=== PATIENT | male | born 1955 | race Caucasian/White ===

== ENCOUNTER → 2018-01-24 09:20 | Outpatient (CLI) | payer OTHER, SELFPAY ==
--- NOTE | 2018-01-24 09:22 | DI.RAD.S_ITS ---
PROCEDURE: XR SHOULDER LT MIN 2V INDICATIONS: Left shoulder sprain decreased range of motion TECHNIQUE: 3 views of the shoulder were acquired. COMPARISON: None. FINDINGS: Bones: No fractures or dislocations. No suspicious bony lesions. Visualized ribs appear intact. There are mild degenerative changes identified involving the acromioclavicular joint. Soft tissues: No suspicious soft tissue calcifications. IMPRESSION: 1. No acute fracture of the left shoulder. 2. Mild degenerative changes of the acromioclavicular joint. Dictated by: Trenton Langley M.D. on 01/24/2018 at 8:35 Approved by: Trenton Langley M.D. on 01/24/2018 at 8:36
== END ==
PROVIDERS: PCP Family Medicine; Visit Provider Physician Assistant
DX: S43.492A Other sprain of left shoulder joint, initial encounter (principal); M25.512 Pain in left shoulder; M19.012 Primary osteoarthritis, left shoulder
CPT/HCPCS: 73030

== ENCOUNTER → 2018-04-26 14:13 | Outpatient (REF) | payer OTHER, SELFPAY | LOC: LAB 14:13 | PROVIDERS: PCP Family Medicine; Visit Provider Family Medicine | DX: Z11.59 Encounter for screening for other viral diseases (principal) | CPT/HCPCS: 87400 ==

== ENCOUNTER 2018-11-09 16:01 | Emergency (ER) | payer OTHER, SELFPAY ==
[2018-11-09 16:09] VITALS: BP 147/87; PULSE 86; RESP 18; TEMP 36.7; O2SAT 97; BMI 27.1
--- NOTE | 2018-11-09 16:14 | DI.RAD.S_ITS ---
PROCEDURE: XR SHOULDER RT MIN 2V INDICATIONS: SHOULDER INJURY FROM FALL TECHNIQUE: 3 views of the shoulder were acquired. COMPARISON: [facility], CR, XR SHOULDER LT MIN 2V, 01/24/2018, 9:23. FINDINGS: Bones: No fractures or dislocations. There is nedj-yh-purukgtd acromioclavicular joint degeneration. No suspicious bony lesions. Visualized ribs appear intact. Soft tissues: No suspicious soft tissue calcifications. IMPRESSION: 1. No fracture or subluxation. Dictated by: Jose Cordova M.D. on 11/09/2018 at 16:15 Approved by: Jose Cordova M.D. on 11/09/2018 at 16:16
[2018-11-09 17:40] VITALS: PULSE 78
--- NOTE | 2018-11-09 18:07 | ED.UPPEXIN ---
HPI - Extremity Injury (Upper) <HOSSEIN Merino - Last Filed: 11/10/18 02:03> General Chief Complaint: Extremity Injury, Upper Stated Complaint: right shoulder/arm radiating pain today L&I Time Seen by Provider: 11/09/18 18:00 Source: patient Mode of arrival: Ambulatory Limitations: no limitations History of Present Illness HPI narrative: This is a 63-year-old gentleman, smoker, who presents to ED with right focalized anterior shoulder pain radiating down to his wrist. Patient reports he tripped and fall on outstretched right hand. Patient denies elbow pain, hand pain, but reports mild mild wrist discomfort. Right dominant hand. Patient denies previous injury to right shoulder or upper extremities. Patient reports intact sensation and reports able to move his fingers. Related Data Home Medications Medication Instructions Recorded Confirmed lisinopril 2.5 mg tablet 2.5 mg PO DAILY 01/24/18 01/24/18 tamsulosin 0.4 mg capsule 0.4 mg PO DAILY 01/24/18 01/24/18 Allergies Allergy/AdvReac Type Severity Reaction Status Date / Time No Known Drug Allergies Allergy Verified 11/09/18 16:09 Review of Systems <HOSSEIN Merino - Last Filed: 11/10/18 02:03> Review of Systems ROS Unobtainable: All systems reviewed & are unremarkable except as noted in HPI and below PFSH <HOSSEIN Merino - Last Filed: 11/10/18 02:03> Surgical History History of arthroscopic knee surgery (Acute) Social History Smoking Status: Current every day smoker alcohol intake: current Social History Smoking Status: Current every day smoker alcohol intake: current Exam <HOSSEIN Merino - Last Filed: 11/10/18 02:03> Narrative Exam Narrative: General appearance: well developed, well nourished, in no acute distress. Head: normocephalic, atraumatic, no scalp lesions, non-tender. Eye: pupil equal, round. EOMI. Nose: nares patent. Oral: mucosa moist. Neck/Thyroid: neck supple, full range of motion, no visible masses. Skin: Has superficial abrasion on left knee. No suspicious rashes, lesions over visible areas. Warm and dry. Heart: no clubbing, no cyanosis, no edema. Lungs: Breathing even and unlabored. No stridor. No accessory muscles used. Chest: normal shape and expansion. Abdomen: non-obese, non-distended. Neurologic: alert and oriented. Cognitive exam, [employer] and PNS grossly intact on informal exam. Psych: good eye contact, normal affect. Initial Vital Signs Initial Vital Signs: Vital Signs Temperature 98.1 F 11/09/18 16:09 Pulse Rate 86 11/09/18 16:09 Respiratory Rate 18 11/09/18 16:09 Blood Pressure 147/87 H 11/09/18 16:09 Pulse Oximetry 97 11/09/18 16:09 Extrem Right upper extremity: shoulder/upper arm Details: normal to inspection, tenderness Location: of the A-C joint and abnormal ROM Details: pain with active ROM Details: in ADduction, in ABduction, in extension, in flexion and in internal rotation; no swelling, elbow/forearm Details: normal ROM and distal pulses intact; no tenderness, no swelling and no deformity, wrist Details: normal to inspection, tenderness (Very mild tenderness with flexion and extension), normal ROM and radial pulse present; no swelling, no unusual warmth, no abrasions, no crepitus and no deformity and hand Details: normal to inspection, normal capillary refill, neuromotor exam normal, neurosensory exam normal, tendon exam normal Location: of all digits, tendon exam abnormal Location: function intact, vascular exam, normal ROM of fingers and no swelling; no tenderness Left upper extremity: full ROM Right lower extremity: full ROM Left lower extremity: full ROM <Maryam Laura DO - Last Filed: 11/10/18 08:46> Initial Vital Signs Initial Vital Signs: Vital Signs Temperature 98.1 F 11/09/18 16:09 Pulse Rate 86 11/09/18 16:09 Respiratory Rate 18 11/09/18 16:09 Blood Pressure 147/87 H 11/09/18 16:09 Pulse Oximetry 97 11/09/18 16:09 Procedures <HOSSEIN Merino - Last Filed: 11/10/18 02:03> Orthopedic Splinting/Casting Injury #1: Side: right Upper Extremity Injury Location: shoulder Upper Extremity Immobilizer: sling/shoulder immobilizer Post splinting neuro exam: intact Post splinting vascular exam: intact Placed by: Nursing Scores <HOSSEIN Merino - Last Filed: 11/10/18 02:03> GCS Robyn coma scale eye opening: Spontaneous Mead coma scale verbal response: Orientated Robyn coma scale motor response: Obey commands Robyn coma scale total score: 15 Course <HOSSEIN Merino - Last Filed: 11/10/18 02:03> Orders Ordered: Discontinued Medications Acetaminophen (Tylenol) 975 mg PO NOW ONE Stop: 11/09/18 18:09 Last Admin: 11/09/18 18:54 Dose: 975 mg Documented by: JULISA Ibuprofen (Advil) 800 mg PO NOW ONE Stop: 11/09/18 18:09 Last Admin: 11/09/18 18:54 Dose: 800 mg Documented by: JULISA Vital Signs Vital signs: Vital Signs - 8 hr 11/09/18 18:57 Pulse Rate 70 Respiratory Rate 18 Blood Pressure [Left Arm] 152/78 H Pulse Oximetry 100 <Maryam Laura DO - Last Filed: 11/10/18 08:46> Orders Ordered: Discontinued Medications Acetaminophen (Tylenol) 975 mg PO NOW ONE Stop: 11/09/18 18:09 Last Admin: 11/09/18 18:54 Dose: 975 mg Documented by: JULISA Ibuprofen (Advil) 800 mg PO NOW ONE Stop: 11/09/18 18:09 Last Admin: 11/09/18 18:54 Dose: 800 mg Documented by: JULISA Vital Signs Vital signs: Vital Signs - 8 hr 11/09/18 18:57 Pulse Rate 70 Respiratory Rate 18 Blood Pressure [Left Arm] 152/78 H Pulse Oximetry 100 MDM - Extremity Injury (Upper) <HOSSEIN Merino - Last Filed: 11/10/18 02:03> Differential Diagnosis Differential diagnosis: Likely other (Shoulder strain, shoulder dislocation) Medical Records Attestation: I reviewed the patient's medical records. Imaging Data XR-Shoulder RT: Radiologist's impression: [address] [address] XRay Report Signed Patient: Louis Fernandez LMR#: [id number] : 6Acct:[id number] Age/Sex: 63 / MDate of Service: 11/09/18 Loc: ED Accession Number: [id number] Procedure: XR shoulder RT min 2V Ordering Provider: Maryam Laura D.O. PROCEDURE: XR SHOULDER RT MIN 2V INDICATIONS: SHOULDER INJURY FROM FALL TECHNIQUE: 3 views of the shoulder were acquired. COMPARISON: [facility], CR, XR SHOULDER LT MIN 2V, 01/24/2018, 9:23. FINDINGS: Bones: No fractures or dislocations. There is putu-ih-gidlacpn acromioclavicular joint degeneration. No suspicious bony lesions. Visualized ribs appear intact. Soft tissues: No suspicious soft tissue calcifications. IMPRESSION: 1. No fracture or subluxation. Dictated by: Jose Cordova M.D. on 11/09/2018 at 16:15 Approved by: Jose Cordova M.D. on 11/09/2018 at 16:16 [facility] Narrative Medical decision making narrative: This is a 63-year-old gentleman who had injured right shoulder during work. Patient states he had tripped and s/p FOOSH. Patient denies weakness on his right arm but complains of anterior shoulder joint pain radiates down to his wrist. Patient denies previous injury or surgery to affected arm. Pain increases with movements such as forward flexion, abduction, adduction, internal rotation, external rotation. Patient reports resting his arm close to his body helps with pain. Circulation and sensations intact distally. There is no pain in elbow or fingers. Patient had very mild tenderness to wrist with flexion and extension but patient declined x-ray test at this time due to patient had full mobility function. X-ray test on right shoulder does not show any acute findings as fracture, dislocation or subluxation. Patient provided with sling as a part of RICE therapy and applied ice pack. Patient medicated with yqfg-gaw-eghmybw ibuprofen for inflammation and pain. Patient advised to follow with his primary care physician next week for further evaluation and possibly a referral to physical therapist as a conservative therapy. Patient informed he may need additional imaging tests if his pain is not relieved within next couple of weeks. Patient advised to exercises shoulder after acute pain is over to prevent frozen shoulder. Patient agrees with treatment plan and no further questions were expressed at this time. Discharge Plan Departure Patient Disposition: Home Clinical Impression: Acute shoulder pain due to trauma Qualifiers: Laterality: right Qualified Code(s): M25.511 - Pain in right shoulder Contusion of right wrist Qualifiers: Encounter type: initial encounter Qualified Code(s): S60.211A - Contusion of right wrist, initial encounter Fall Qualifiers: Encounter type: initial encounter Qualified Code(s): W19.XXXA - Unspecified fall, initial encounter Discharge Date/Time: 11/09/18 18:59 Instructions: DI for Wrist Strain, DI for Shoulder Pain Activity Restrictions/Additional Instructions: You have been diagnosed with [right anterior shoulder pain after fall and s/p FOOSH]. What to do: *Take your medications as directed. Please take hvir-gau-cyocajs Tylenol and or Motrin as needed for discomfort. You can take upto 4000 mg /24 period as for Tylenol and 400-600 mg Motrin 3 times a day with food to decrease stomach irritation. Please use ice pack and sling in next few days for pain and inflammation. After then, please exercise your shoulder gentle early to prevent frozen shoulder. *Follow up with your primary care provider in 2-3 days, call for an appointment. Let them know you were seen in the ED and that we asked you to be seen in follow up. Your doctor may refer you to physical therapist if the pain persists and may need further imaging tests. *Return to ED if you have any new, worsening, or concerning symptoms, such as [chest pain, breathing difficulty, unable to tolerate fluids, tingling/numbness/weakness to right hand, worsening pain]. Prescriptions: No Action tamsulosin 0.4 mg capsule 0.4 mg PO DAILY RF: 0 lisinopril 2.5 mg tablet 2.5 mg PO DAILY RF: 0 Referrals: Raciel Noel MD [Primary Care Provider] - Stand Alone Forms: Work Release Note
[2018-11-09] MEDS: ACETAMINOPHEN 325 MG TABLET 975 MG PO (18:54)
[2018-11-09] MEDS: IBUPROFEN 400 MG TABLET 800 MG PO (18:54)
[2018-11-09 18:57] VITALS: BP 152/78; PULSE 70; RESP 18; O2SAT 100
== END 2018-11-09 18:59 | disposition home or self-care (01) ==
PROVIDERS: Emergency Provider Nurse Practitioner Family; PCP Family Medicine
DX: M25.511 Pain in right shoulder (principal); S60.211A Contusion of right wrist, initial encounter; W19.XXXA Unspecified fall, initial encounter; Y99.0 Civilian activity done for income or pay
CPT/HCPCS: 73030; 99283

== ENCOUNTER → 2019-01-01 07:35 | Outpatient (CLI) | payer OTHER, SELFPAY ==
--- NOTE | 2019-01-01 | DI.MRI.S_ITS ---
PROCEDURE: MR SHOULDER RT W CON INDICATIONS: Other synovitis and tenosynovitis, unspecified miriam TECHNIQUE: After the administration of 12 mL of dilute intra-articular Gadolinium contrast, oblique coronal T1 and T2 spin echo with fat saturation, oblique sagittal T1 spin echo with and without fat saturation, oblique sagittal T2 fast spin echo with fat saturation, axial T1 spin echo with fat saturation through the shoulder. COMPARISON: None. FINDINGS: Image quality: Excellent. Rotator cuff: Full-thickness tear of the supraspinatus tendon is seen measuring approximately 2.1 cm on coronal image 14 series 7. Infraspinatus tendinopathy with partial-thickness low-grade bursal and articular sided tear. Teres minor appears intact. Full-thickness tear of the subscapularis tendon. Atrophy of the supraspinatus and subscapularis muscles and mild fatty infiltration of the infraspinatus muscle. Bones and bursae: No bone marrow contusions or fractures. Moderate acromioclavicular joint degeneration. Glenohumeral joint degeneration also noted primarily at the inferior joint space. Acromion demonstrates conventional anatomy, without an os acromiale. Capsule and soft tissues: Ill-defined fraying and diminutive size of the inferior labrum. Remainder of the labrum. Mildly blunted without definite intrasubstance gadolinium signal intensity Long head of the biceps tendinopathy and possible early medial subluxation image 14 series 6. The rotator interval appears normal, without fibrosis. Coracohumeral ligament intact. IMPRESSION: Full-thickness tear of the supraspinatus tendon Infraspinatus tendinopathy with low-grade partial thickness articular and bursal sided tear. Full-thickness tear of the subscapularis tendon. Possible early medial subluxation long head biceps tendon. Long head biceps tendinopathy without definite complete rupture. Atrophy of the supraspinatus and subscapularis muscles. Possible chronic macerated tear versus advanced degeneration of the inferior labrum. Dictated by: Solomon Richardson M.D. on 01/01/2019 at 9:12 Approved by: Solomon Richardson M.D. on 01/01/2019 at 9:19
--- NOTE | 2019-01-01 | DI.RAD.S_ITS ---
PROCEDURE: FL SHOULDER INJECTION MR/CT RT INDICATIONS: Other synovitis and tenosynovitis, unspecified miriam COMPARISONS: Right shoulder radiographs 11/09/18. Left shoulder radiographs 01/24/18. TECHNIQUE: The indications, alternatives, benefits, risks, and complications of the procedure were explained to the patient. Written informed consent was obtained and placed in the chart. The shoulder was examined fluoroscopically and a site for needle placement chosen for entry into the glenohumeral joint from an anterior approach. The skin was prepped and draped in a sterile fashion, and 1% lidocaine infiltrated from skin down to joint capsule. A spinal needle was inserted into the glenohumeral joint, and a small amount of iodinated contrast media injected to confirm intra-articular placement of the needle tip. This was followed by approximately 10 mL dilute solution of a gadolinium containing MR contrast agent. The needle was removed and a dressing was applied. The patient was given postprocedural instructions and sent to the MR suite for MR imaging. FINDINGS: A single fluoroscopic spot image demonstrates intra-articular location of injected iodinated contrast. IMPRESSION: Successful fluoroscopically guided administration of dilute Gadolinium solution into the right shoulder joint for MR arthrogram. Dictated by: Carlton Dillard M.D. on 01/01/2019 at 9:09 Approved by: Carlton Dillard M.D. on 01/01/2019 at 9:12
== END ==
PROVIDERS: PCP Family Medicine; Visit Provider Student in an Organized Health Care Education/Training Program
DX: M65.811 Other synovitis and tenosynovitis, right shoulder (principal); M19.011 Primary osteoarthritis, right shoulder; M75.121 Complete rotator cuff tear or rupture of right shoulder, not specified as traumatic; M62.511 Muscle wasting and atrophy, not elsewhere classified, right shoulder
CPT/HCPCS: 23350; 73222; 77002

== ENCOUNTER → 2020-08-24 07:59 | Outpatient (CLI) | payer OTHER, SELFPAY ==
[2020-08-24 08:34] LABS: COVID19 -Nasal RAPID Negative (Negative)
== END ==
PROVIDERS: Referring Provider Internal Medicine; Visit Provider Internal Medicine
DX: Z20.822 Contact with and (suspected) exposure to COVID-19 (principal)
CPT/HCPCS: 87635; C9803

== ENCOUNTER → 2020-08-24 08:02 | Outpatient (CLI) | payer OTHER, SELFPAY ==
--- NOTE | 2020-08-27 08:11 | PM.PFT.1 ---
Pulmonary Function Test Referral & Results Date Patient Seen: 08/24/20 Requesting provider: Lexie Contreras Results: The spirometry demonstrates an FVC of 4.69 L which is 94% of predicted. The FEV1 was measured at 2.60 L which is 70% of predicted. The FEV1/FVC ratio was 55 which is 73% of predicted. Following the administration of bronchodilator there was a 22% improvement in FEF 25-75%. Lung volumes show an SVC of 5.25 L which is 105% of predicted. The diffusing capacity was measured at 24.28 which is 69% of predicted. No hemoglobin value was provided, so no correction for potential anemia could be made, if appropriate. The maximum voluntary ventilation was reduced Interpretation: This study demonstrates mild to moderate obstructive lung disease based on reduction FEV1 and FEV1/FVC ratio with some limited evidence of benefit following bronchodilator based on improvement in FEF 25-75% as above which suggest small airway flow improvement Lung volumes are normal There is a mild reduction in diffusing capacity as well suggesting element of disease at the capillary alveolar level, unless patient is anemic as above. Clinical correlation suggested
== END ==
PROVIDERS: Referring Provider Student in an Organized Health Care Education/Training Program; Visit Provider Student in an Organized Health Care Education/Training Program
DX: R06.02 Shortness of breath (principal); F17.210 Nicotine dependence, cigarettes, uncomplicated; J98.8 Other specified respiratory disorders; Z20.822 Contact with and (suspected) exposure to COVID-19
CPT/HCPCS: 87635; 94060; 94726; 94729; C9803

== ENCOUNTER 2020-09-17 04:36 | Emergency (ER) | payer OTHER, SELFPAY ==
[2020-09-17 04:40] VITALS: BP 172/81; PULSE 85; RESP 20; TEMP 36.6; O2SAT 97; BMI 26.9
--- NOTE | 2020-09-17 04:46 | DI.RAD.S_ITS ---
PROCEDURE: XR KNEE RT 3V INDICATIONS: knee pain, no trauma TECHNIQUE: 3 views of the knee were acquired. COMPARISON: None. FINDINGS: Bones: No fractures or dislocations. No suspicious bony lesions. Note is made of near severe degenerative joint space narrowing at the lateral facet of the knee joint seen on the frontal projection and also near severe mbbo-tg-[id number] articulation at the lateral facet of the patellofemoral joint. Soft tissues: Small joint effusion. No suspicious soft tissue calcifications. IMPRESSION: The degenerative changes at the knee are near severe at the lateral compartment and also the lateral facet of the patellofemoral joint. Overlying the joint space anteriorly and posteriorly on the lateral view are several calcifications, small in size, and potentially representing small intra-articular loose bodies. No acute trauma found. Dictated by: Galileo Fernandez M.D. on 09/17/2020 at 9:47 Approved by: Galileo Fernandez M.D. on 09/17/2020 at 9:48
--- NOTE | 2020-09-17 05:04 | ED.EXTPRO ---
HPI - Extremity Problem General Chief complaint: Extremity Problem,Nontraumatic Stated complaint: Right knee pain hurts to bear weight Time Seen by Provider: 09/17/20 04:46 Source: patient and family Mode of arrival: Wheelchair History of Present Illness HPI Narrative: 65-year-old male who is here for evaluation of right knee pain. Patient states that he knows he has arthritis. He states that a couple days ago he woke up with pain in his right knee. There was no specific injury. He states that since that time it has caused him extreme difficulty to stand and walk and put pressure on his knee. He does have a cane at home that he has been trying to use. He denies any fevers. No skin changes. Is here because he could not sleep last night because of the discomfort. Related Data Home Medications Medication Instructions Recorded Confirmed lisinopril 2.5 mg tablet 2.5 mg PO DAILY 01/24/18 01/24/18 tamsulosin 0.4 mg capsule 0.4 mg PO DAILY 01/24/18 01/24/18 Allergies Allergy/AdvReac Type Severity Reaction Status Date / Time No Known Drug Allergies Allergy Verified 11/09/18 16:09 Review of Systems Constitutional Constitutional: Reports system reviewed and no additional complaints, except as documented Musculoskeletal Musculoskeletal: Reports as per HPI Integumentary/Breasts Skin/Breast: Reports system reviewed and no additional complaints, except as documented Neurologic Neurologic: Reports system reviewed and no additional complaints, except as documented Hematologic/Lymphatic On Anticoagulants: No Patient History Medical History (Updated 09/17/20 @ 05:49 by Maykel Nicholas DO) BPH (benign prostatic hyperplasia) HTN (hypertension) Surgical History History of arthroscopic knee surgery Social History Smoking Status: Current every day smoker alcohol intake: current Smoking Status: Current every day smoker Substance Use Type: does not use Exam Initial Vital Signs Initial Vital Signs: Vital Signs Temperature 98 F 09/17/20 04:40 Pulse Rate 85 09/17/20 04:40 Respiratory Rate 20 09/17/20 04:40 Blood Pressure 172/81 H 09/17/20 04:40 Pulse Oximetry 97 09/17/20 04:40 Const General: cooperative and healthy appearing Resp Effort & Inspection: normal respiratory effort Skin General: no rashes or lesions noted Neuro General: patient alert and patient awake Extrem Other: Patient does have a small effusion of the right knee. He has tenderness to palpation along the mediolateral joint line and also posteriorly. He does not have tenderness along the quadriceps tendon or patellar tendon. He is able to do a straight leg raise. Psych Appearance: grossly normal Procedures Orthopedic Splinting/Casting Injury #1: Side: right Lower Extremity Injury Location: knee Lower Extremity Immobilizer: Aaron wrap Post splinting neuro exam: intact Post splinting vascular exam: intact Placed by: Nursing Course Orders Ordered: ED Orders 09/17/20 04:46 XR knee RT 3V Stat Discontinued Medications Hydrocodone Bitart/Acetaminophen (Hydrocodone/Acet 5/325 Prepack) 1 bottle MISC SEEINSTR ONE Stop: 09/17/20 05:34 Vital Signs Vital signs: Vital Signs - 8 hr 09/17/20 04:40 09/17/20 05:07 Temperature 98 F Pulse Rate 85 62 Respiratory Rate 20 18 Blood Pressure 172/81 H 108/61 Pulse Oximetry 97 97 MDM - Extremity (Nontraumatic) Imaging Data Extremity x-ray #1: Radiologist's Impression: Severe tricompartmental degenerative changes with moderate joint effusion MDM Narrative Medical decision making narrative: No fractures noted on the x-rays. He is neurovascularly intact. Does have arthritis noted on the x-ray. I have low suspicion for infection. Low suspicion for gout. I do suspect that this is an arthritis flare. He was given a Aaron bandage for his comfort. He has a cane that he has been using at home and will continue to use as needed. He is already under the care of orthopedics for other issues and he was instructed to contact them for follow-up. Was given return precautions. He expressed understanding and agreement. Discharge Plan Departure Patient Disposition: Home Clinical Impression: Arthritis, Acute knee pain Instructions: Osteoarthritis Activity Restrictions/Additional Instructions: The x-ray today does show arthritis but no other signs of a fracture. I do recommend that you keep your leg elevated use ice. You can also use Tylenol and other anti-inflammatories such as Motrin or Naprosyn. Use the Aaron bandage as needed for your comfort and also the cane. Contact your primary doctor for a follow-up. Return to the emergency department for any new or worsening symptoms Prescriptions: No Action tamsulosin 0.4 mg capsule 0.4 mg PO DAILY RF: 0 lisinopril 2.5 mg tablet 2.5 mg PO DAILY RF: 0
[2020-09-17 05:07] VITALS: BP 108/61; PULSE 62; RESP 18; O2SAT 97
[2020-09-17] MEDS: HYDROCODONE/ACET 5/325 PREPACK 1 BOTTLE MISC (05:59)
== END 2020-09-17 06:05 | disposition home or self-care (01) ==
PROVIDERS: Emergency Provider Emergency Medicine
DX: M17.11 Unilateral primary osteoarthritis, right knee (principal); M25.561 Pain in right knee
CPT/HCPCS: 73562; 99282

== ENCOUNTER → 2021-03-30 10:20 | Outpatient (CLI) | payer OTHER, SELFPAY ==
[2021-03-30 13:59] LABS: COVID19 -Nasal RAPID Negative (Negative)
== END ==
PROVIDERS: Visit Provider Family Medicine Sleep Medicine
DX: Z20.822 Contact with and (suspected) exposure to COVID-19 (principal)
CPT/HCPCS: 87635; C9803

== ENCOUNTER 2021-04-01 14:48 | Day surgery (SDC) | payer OTHER, SELFPAY ==
[2021-04-01] VITALS (8 sets, daily range): BP systolic 97–122; BP diastolic 60–99; PULSE 60–96; RESP 15–16; TEMP 36.2; O2SAT 94–98; BMI 26.6
--- NOTE | 2021-04-01 | PATH_ITS ---
[facility] Accession Number: [id number] No. of containers..01 Tissue . 01 Material submitted: . colon - SIGMOID COLON POLYP X5 (8MM, 1 CM, 4MM, 6MM X2) . 02 Diagnosis: Sigmoid Colon Polyp x5 (8 mm, 1 cm, 4 mm, 6 mm x2): Multiple (approximately 10) portions of hyperplastic polyp. MRV 04/05/2021 1527 Local . 02 Electronically signed: . Gudelia Price MD, Pathologist NPI- [id number] . 01 Gross description: . SIGMOID COLON POLYP X5 (8MM, 1 CM, 4MM, 6MM X2): Received in formalin are multiple fragment(s) of dias, soft tissue measuring 1.9 x 0.6 x 0.3 cm in aggregate submitted entirely in 1 cassette(s) /[facility] 04/04/2021 1127 Local . 02 Pathologist provided ICD-10: K63.5 . 02 CPT . 847801 Specimen Comment: A courtesy copy of this report has been sent to [phone] Performed at: 01 [facility] [address] [id number] MD Jose Sanches MD Phone: [phone] Performed at: 02 [facility] [address] [place], [place] [id number] MD Lana Borges MD Phone: [phone]
--- NOTE | 2021-04-01 12:15 | P.HP_ITS ---
History of Present Illness History of Present Illness Date Patient Seen: 04/01/21 Chief complaint: SCREENING COLONOSCOPY Narrative: 65 year old male comes in today for consideration of a screening colonoscopy. Last colonoscopy in 2018 indicated for screening and family history of colon p olyps. Findings showed a 1 mm tubular adenoma in the ascending colon, a 3 mm tubular adenoma in the transverse colon and 4 hyperplastic polyps in the rectosigmoid colon, all 2 mm in size. Scattered diverticula and external hemorrhoids also noted. There have been no lower GI symptoms suggesting disease such as change in bowel habits, bleeding, abdominal pain or anemia. Overall health issues have been stable, including no major cardiac events for at least 6 weeks. PCP: Dr. Contreras Past Medical History: Skin lesion Other sprain of right shoulder joint, subsequent encounte Rotator cuff tear, right Rotator cuff tendonitis HYPERLIPIDEMIA HYPERTENSION Elevated serum GGT level B P H WITH URINARY OBSTRUCTION ERECTILE DYSFUNCTION TOBACCO USE DISORDER OSTEOARTHRITIS PSORIASIS R foot fracture, 05/2020 Past Surgical History: knee, hypermobile patella, repair, 1974 Hernia, 1993 Synvisc, left knee 2010 Rt foot surgery 05/24/20 Family History: Father: Smoker, of [place] Mother: Heart attack, of breast cancer, hysterectomy Social History: Marital Status: Single Children: none Occupation: customer service, now retired Household Members: 1 Education: Trade school 08/18/20: Brother in his chair within the last week. Patient found him first and called 911, he now lives alone. Planning to spread his ashes over his parents' grave and in the [facility] [place]. 01/12/21: Planning to retire later this week. Fall Risk: multiple falls in past year Patient History Medical History BPH (benign prostatic hyperplasia) HTN (hypertension) Surgical History History of arthroscopic knee surgery Family & Social History Tobacco & Substance use: Smoking Status Current every day smoker alcohol intake current Substance Use Type does not use Meds Home Medications and Allergies Home Medications Medication Instructions Recorded Confirmed Type lisinopril 2.5 mg tablet 2.5 mg PO DAILY 01/24/18 04/01/21 History tamsulosin 0.4 mg capsule 0.4 mg PO DAILY 12/13/18 12/13/18 History Allergies Allergy/AdvReac Type Severity Reaction Status Date / Time No Known Drug Allergies Allergy Verified 04/01/21 15:17 Review of Systems Review of Systems Narrative: All remaining ROS were reviewed and negative except as addressed. Exam Narrative Exam Narrative: GENERAL: Alert and oriented, appearing stated age and in no acute distress. HEENT: Head normocephalic/atraumatic. Extraocular movements intact. LUNGS: Clear to ausculation bilaterally, no wheezes, rhonchi or rales. CV: Normal S1 and S2 with regular rate and rhythm, no audible murmurs, rubs or gallops. ABDOMEN: Soft, non-tender, non-distended, no organomegaly. Positive bowel sounds. EXTREMITIES: No clubbing, cyanosis, or edema. NEURO: Cranial nerves II through XII grossly intact, no focal deficits. PSYCH: Alert and oriented x 3. SKIN: No concerning lesions. Assessment & Plan Assessment & Plan narrative: 1. History of colon polyps 2. Family history of colon polyps 3. Screening for colon cancer 4. Diverticulosis 5. External hemorrhoids Plan for colonoscopy. The nature and character of the procedure as well as anticipated results were discussed. The possibility of not completing the procedure was also discussed. Possible complications including aspiration pneumonia, bleeding, perforation and reaction to medications either for sedation or preparation and missed lesions were discussed. Questions were answered and proceeding to the colonoscopy was elected. Informed consent signed.
--- NOTE | 2021-04-01 12:22 | PM.OP.COLON ---
Operative Date/Time/Diagnoses Date of procedure: 04/01/21 Procedure Notes SCOAP/Timeout: 4:36 p.m. Procedure in detail: ENDOSCOPIST: Lexie Contreras MD Sedation RN: Jhoana Barahona RN Sedation start time: 4:37 p.m. Sedation end time: 5:12 p.m. PROCEDURE: Colonoscopy with cold biopsy INDICATIONS: 1. History of colon polyps 2. Family history of colon polyps 3. Screening for colon cancer 4. Diverticulosis, history of 5. External hemorrhoids, history if MEDICATION: Levsin 0.125 mg sublingual, incremental doses of Versed and fentanyl until appropriate level sedation achieved. ASA CLASS: 2 CECAL WITHDRAWAL TIME: 25 minutes COMPLICATIONS: None. EXTENT OF PROCEDURE: Cecum. QUALITY OF PREP: Good with portions of liquid stool. PROCEDURE: Prior to insertion of the colonoscope, a digital rectal examination was accomplished with circumferential palpation of the distal rectal mucosa without significant findings being noted. The high-definition colonoscope was passed into the rectum in the usual fashion and advanced over to the cecum without difficulty. The ileocecal valve, appendiceal stoma, and medial wall all could be inspected and no abnormalities were seen. ASCENDING COLON: As the colonoscope was withdrawn, care was taken to expose and inspect the haustral folds and no abnormalities were seen. HEPATIC FLEXURE: Normal, no polyps, diverticula or other abnormalities. TRANSVERSE COLON: Normal, no polyps, diverticula or other abnormalities. DESCENDING COLON: Normal, no polyps, diverticula or other abnormalities. SIGMOID COLON: 5 polyps were seen ranging between 4 mm and 10 mm, all removed with cold biopsy forceps, excellent hemostasis. Otherwise, minor diverticulosis and no other abnormalities. RECTUM: Normal. J maneuver was produced. There was no significant perianal disease. The J maneuver was broken. The remainder of the rectum was inspected and there was minor external hemorrhoid disease. The scope was withdrawn. IMPRESSION: 1. Sigmoid polyp x5, 4-10 mm, removed with cold biopsy forceps 2. Sigmoid diverticulosis, mild 3. External hemorrhoids, nonthrombosed PLAN: 1. Follow-up in clinic status post pathology results. The possibility of a missed lesion including a malignancy has been discussed with the patient previously. Potential alarm symptoms have been discussed and should be reported immediately.
[2021-04-01] MEDS: HYOSCYAMINE 0.125 MG TABLET PO (15:38)
[2021-04-01] MEDS: LACTATED RINGERS 1,000 ML 200 ML IV (15:38)
[2021-04-01] MEDS: MIDAZOLAM 5 MG/5 ML VIAL IV (17:16)
[2021-04-01] MEDS: fentaNYL 250 MCG/5 ML INJ IV (17:17)
== END 2021-04-01 18:07 | disposition home or self-care (01) ==
PROVIDERS: PCP Student in an Organized Health Care Education/Training Program; Referring Provider Student in an Organized Health Care Education/Training Program; Visit Provider Student in an Organized Health Care Education/Training Program
PROC: 0DJD8ZZ Inspection of Lower Intestinal Tract, Via Natural or Artificial Opening Endoscopic (ICD-10-PCS; CPT 45378; principal; 2021-04-01 16:00)
DX: Z12.11 Encounter for screening for malignant neoplasm of colon (principal); Z86.010 Personal history of colon polyps; K57.30 Diverticulosis of large intestine without perforation or abscess without bleeding; K64.4 Residual hemorrhoidal skin tags; K63.5 Polyp of colon
CPT/HCPCS: 45380; J2250; J3010

== ENCOUNTER → 2024-03-19 11:09 | Outpatient (CLI) | payer OTHER, SELFPAY ==
[2024-03-19 12:14] LABS: Add Manual Diff / Slide Review NO; Basophils Absolute Auto 100 /uL (0-100); Basophils Percent Auto 0.7 % (0-2); Eosinophils Absolute Auto 200 /uL (0-450); Eosinophils Percent Auto 1.4 % (2-4); Hematocrit 46.9 % (41-53); Hemoglobin 15.6 g/dL (13.5-17.5); Lymphocytes Absolute Auto 2100 /uL (1100-4500); Lymphocytes Percent Auto 18.5 % (25-40); Mean Corpuscular HGB Conc 33.2 % (30-36); Mean Corpuscular Hemoglobin 32.4 PG (26-34); Mean Corpuscular Volume 97.8 fL (80-100); Monocytes Absolute Auto 800 /uL (0-900); Monocytes Percent Auto 6.9 % (3-14); Neutrophils Absolute Auto 8100 /uL (1500-7000); Neutrophils Percent Auto 72.5 % (50-75); Platelet Count 267 X10^3/uL (150-400); Red Cell Distribution Width 13.9 % (11.6-14.8); White Blood Cell Count 11.1 X10^3/uL (4.5-11.0)
[2024-03-19 12:21] LABS: Hemoglobin A1C% w Est Avg Glu 5.5 % (4.0-6.0)
[2024-03-19 12:36] LABS: Cholesterol 129 mg/dL (140-199); HDL Cholesterol 53 mg/dL (40-60); LDL Cholesterol Calculated 64 mg/dL (<100); Triglycerides 59 mg/dL (35-150); VLDL Cholesterol Calculated 12 mg/dL (2-30)
[2024-03-19 13:04] LABS: Prostate Specific Antigen 2.15 ng/mL (0.10-4.00)
== END ==
LOC: LAB 11:12
PROVIDERS: PCP Family Medicine; Referring Provider Family Medicine; Visit Provider Family Medicine
DX: R06.09 Other forms of dyspnea (principal); R73.01 Impaired fasting glucose; E78.2 Mixed hyperlipidemia; I10 Essential (primary) hypertension; Z82.41 Family history of sudden cardiac death; D72.829 Elevated white blood cell count, unspecified; Z13.0 Encounter for screening for diseases of the blood and blood-forming organs and certain disorders involving the immune mechanism
CPT/HCPCS: 36415; 80061; 83036; 84153; 85025

== ENCOUNTER → 2024-05-09 07:15 | Outpatient (CLI) | payer OTHER, SELFPAY ==
--- NOTE | 2024-05-09 07:16 | DI.CT.S_ITS ---
PROCEDURE: CT LUNG LOW DOSE SCREENING INDICATIONS: lung cancer screening TECHNIQUE: Noncontrast 2.0-2.5 mm thick sections acquired from the pulmonary apices to the posterior costophrenic angles. 7 mm thick axial MIP, and 5 mm coronal and sagittal reformats were then acquired. For radiation dose reduction, the following was used: automated exposure control, adjustment of mA and/or kV according to patient size. COMPARISON: [facility], CT, CT LOW DOSE LUNG CA SCREENING, 06/28/2022, 8:00. [facility], CT, CT LOW DOSE LUNG CA SCREENING, 06/27/2021, 7:23. FINDINGS: Image quality: Diagnostic. Lower Neck: No enlarged lymph nodes. Thyroid: No thyroid nodules which require sonographic follow up, per consensus guidelines. Axillae: No enlarged lymph nodes. Chest Wall: Unremarkable. Bones: No suspicious osseous lesion. Lungs and Pleura: No pneumothorax or pleural effusions. No acute airspace opacity. The central airways are clear. Mild emphysematous change. A few areas of distal mucus airway plugging. A few pulmonary nodules measuring 0.4 cm or less. For example: -Right upper lobe 0.4 cm, (3/123), previously 0.5 cm. -Right middle lobe 0.3 cm, (3/189), unchanged. No new or enlarging pulmonary nodules. Heart: Heart size is normal. No pericardial effusion. Thoracic Vessels: The aorta and pulmonary arteries demonstrate normal size. Mediastinum and Stephanie: No enlarged lymph nodes. Esophagus: No wall thickening. No hiatal hernia. Upper Abdomen: Visualized upper abdomen solid organs and bowel loops appear normal. IMPRESSION: No suspicious pulmonary nodules. LUNG-RADS 2; continued annual screening, if eligible. Clinically Significant Non-pulmonary Findings: Moderate to severe coronary artery calcifications. Dictated by: Theodore Francois M.D. on 05/09/2024 at 9:27 Approved by: Theodore Francois M.D. on 05/09/2024 at 9:35
== END ==
PROVIDERS: PCP Family Medicine; Referring Provider Internal Medicine Critical Care Medicine; Visit Provider Internal Medicine Critical Care Medicine
DX: J44.9 Chronic obstructive pulmonary disease, unspecified (principal); I25.10 Atherosclerotic heart disease of native coronary artery without angina pectoris; Z12.2 Encounter for screening for malignant neoplasm of respiratory organs; R91.8 Other nonspecific abnormal finding of lung field; Z87.891 Personal history of nicotine dependence
CPT/HCPCS: 71271